=== PATIENT | female | born 1960 | race Caucasian/White ===

== ENCOUNTER → 2021-04-04 | Outpatient (CLI) | payer OTHER | END | disposition home or self-care (01) | LOC: ROC 09:03 | PROVIDERS: ATTEND Radiology Radiation Oncology | DX: C21.0 Malignant neoplasm of anus, unspecified (principal) | CPT/HCPCS: 99214; G0463 ==

== ENCOUNTER → 2021-04-13 | Outpatient (CLI) | payer OTHER ==
[~2021-04-13] MED LIST: OMNIPAQUE 350 MG/ML, 100ML BOTTLE ONE
== END | disposition home or self-care (01) ==
LOC: CFH 07:00
PROVIDERS: ATTEND Radiology Radiation Oncology
DX: C21.1 Malignant neoplasm of anal canal (principal); N28.1 Cyst of kidney, acquired; M51.36 Other intervertebral disc degeneration, lumbar region
CPT/HCPCS: 71260; 74177; Q9967

== ENCOUNTER 2021-04-19 11:25 | Day surgery (SDC) | payer OTHER ==
[~2021-04-19] VITALS: Ht 171.4 cm; Wt 68.2 kg
[2021-04-19] MEDS ORDERED: CEFAZOLIN 1,000 MG in SODIUM CHLORIDE 0.9% 50 ML IV ONE (12:00)
[2021-04-19] MEDS ORDERED: SODIUM CHLORIDE 0.9% 1,000 ML IV SCH (12:00)
[2021-04-19 12:08] VITALS: BP 146/86
[2021-04-19] MEDS ORDERED: CEFAZOLIN PMX 1GM/50ML 50 ML IV ONE (12:30)
[2021-04-19] MEDS ORDERED: MIDAZOLAM 1 MG/ML, 5ML ONE ×2 (13:10)
[2021-04-19] MEDS ORDERED: FENTANYL PF 100 MCG/2ML ONE (13:10)
[2021-04-19] MEDS ORDERED: FLUMAZENIL 0.1 MG/1 ML, 5ML ONE (13:10)
[2021-04-19] MEDS ORDERED: NALOXONE 1 MG/ML, 2ML ONE (13:10)
== END 2021-04-19 15:30 | disposition home or self-care (01) ==
LOC: OUT 11:25
PROVIDERS: ATTEND Internal Medicine Hematology & Oncology
DX: C21.1 Malignant neoplasm of anal canal (principal); F41.9 Anxiety disorder, unspecified; Z79.899 Other long term (current) drug therapy
CPT/HCPCS: 36561; 76937; 77001; 99156; 99157; C1788; J0690; J2250; J3010; J7030; J2310

== ENCOUNTER → 2021-06-12 | Outpatient (CLI) | payer OTHER | END | disposition home or self-care (01) | LOC: ROC 07:20 | PROVIDERS: ATTEND Radiology Radiation Oncology | DX: Z08 Encounter for follow-up examination after completed treatment for malignant neoplasm (principal); Z85.048 Personal history of other malignant neoplasm of rectum, rectosigmoid junction, and anus; F41.9 Anxiety disorder, unspecified; Z79.899 Other long term (current) drug therapy ==